=== PATIENT | male | born 2005 | race Caucasian/White ===

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

== ENCOUNTER 2023-04-09 11:47 | Emergency (ER) | payer MEDICAID ==
[~2023-04-09] VITALS: Ht 185.4 cm; Wt 68.1 kg
[~2023-04-09 11:47] MED LIST changes: +IBUP1TAB5 PO; -IBUP600T28 PO
[2023-04-09 12:23] LABS: Basophils # (auto) 0.1 10 ^3/uL (0-0.2); Basophils % (auto) 1.2 % (0.0-2.0); Eosinophils # (auto) 0.1 10 ^3/uL (0-0.8); Eosinophils % (auto) 2.1 % (0.0-7.0); Hematocrit 47.3 % (41.0-53.0); Hemoglobin 15.9 g/dL (13.5-17.5); Lymphocytes # (auto) 2.5 10 ^3/uL (0.4-5.4); Lymphocytes % (auto) 43.3 % (10.0-50.0); Mean Corpuscular Hgb Conc. 33.6 g/dL (32.0-36.0); Mean Corpuscular Volume 89.2 fL (80.0-100.0); Monocytes # (auto) 0.5 10 ^3/uL (0-1.3); Monocytes % (auto) 7.8 % (0.0-12.0); Neutrophils # (auto) 2.7 10 ^3/uL (1.6-8.6); Neutrophils % (auto) 45.6 % (37.0-80.0); Nucleated Red Blood Cells % 0.1 %; Red Cell Distribution Width 12.9 % (11.8-14.3); White Blood Cell 5.9 10^3/uL (4.4-10.8)
[2023-04-09 12:33] LABS: Urine Bacteria NONE SEEN /hpf (None Seen); Urine Blood Negative /uL (Negative); Urine Clarity Clear (Clear); Urine Color Colorless (Yellow); Urine Protein, UAD Negative (Negative); Urine Specific Gravity 1.014 (1.001-1.035); Urine Urobilinogen Normal (Negative); Urine WBC <1 /hpf (0 - 3)
[2023-04-09 12:39] LABS: Alanine Aminotransferase 29 U/L (7-40); Alkaline Phosphatase 88 U/L (46-116); Anion Gap 6 (5-15); Aspartate Aminotransferase 31 U/L (13-40); Blood Urea Nitrogen 15 mg/dL (9-23); Calcium 10.1 mg/dL (8.5-10.1); Carbon Dioxide 28 mmol/L (20-30); Chloride 107 mmol/L (98-107); Glucose 98 mg/dL (74-106); Potassium 4.4 mmol/L (3.5-5.1); Sodium 141 mmol/L (136-145); Total Protein 7.5 g/dL (5.7-8.2)
[2023-04-09 13:30] VITALS: BP 110/84; PULSE 74; RESP 16; TEMP 98; O2SAT 99
== END 2023-04-09 14:13 | disposition home or self-care (01) ==
LOC: ER 11:47
DX: R07.89 Other chest pain (principal); Z79.1 Long term (current) use of non-steroidal anti-inflammatories (NSAID); Z79.899 Other long term (current) drug therapy
CPT/HCPCS: 36415; 80053; 81001; 84484; 85025; 85379; 93005

== ENCOUNTER 2024-04-10 04:42 | Emergency (ER) | payer MEDICAID ==
[~2024-04-10] VITALS: Ht 185.4 cm; Wt 72.2 kg
--- NOTE | 2024-04-10 05:17 | ED.PDOC ---
History of Present Illness HPI Comments 18-year-old male came to ER due to anxiety. Patient denies any medical problems. States he was lying in bed, when he the substernal chest pains, described as aching, dull, tight, non radiating, associated with tingling of the lower extremities and mild shortness of breath. Patient states he felt very anxious and his symptoms worsened when his anxiety kicked in. He admits to have smoked marijuana earlier and drank alcohol also. He continues through for a dull left-sided chest pain. He denies any significant past medical history. Denies cocaine or methamphetamine use. No family history of cardiac disease. Chief Complaint: Anxiety Time Seen by MD: 05:13 Primary Care Provider: NONE Reviewed Notes: Nurses Notes Allergies: Coded Allergies: NO KNOWN ALLERGIES (Unverified , 06/09/22) Home Meds Active Scripts Lidocaine (LIDODERM 5% TOPICAL PATCH) 1 Patch Ph, 1 PATCH TOP DAILY PRN, #30 PATCH 0 Refills Prov:MARIYA [facility] 06/09/22 Cyclobenzaprine Hcl (Cyclobenzaprine Hcl) 10 Mg Tab, 10 MG PO TID, #12 TAB 0 Refills Prov:MARIYA [facility] 06/09/22 Ibuprofen Micronized (Ibuprofen) 600 Mg Tab, 600 MG PO Q8HPRN PRN, #30 TAB 0 Refills Prov:MARIYA [facility] 06/09/22 Information Source: Patient Mode of Arrival: EMS Severity: Moderate Timing: Minutes Review of Systems REVIEW OF SYSTEMS: No fever, no chills, or fatigue HEENT: No sore throat, no earache, no congestion, no neck pain. Cardiac: (+) chest pain. Positive palpitations. Lungs: No shortness of breath, no cough. GI: No nausea, no vomiting, no diarrhea, no constipation, no abdominal pain : No dysuria, frequency, or urgency. No hematuria. Musculoskeletal: No joint pain , no joint swelling, no extremity edema. Skin: No rash, no itching. Neuro: No headache, no dizziness, no weakness (+) tingling Vital Signs Vital Signs Date Time Temp Pulse Resp B/P (MAP) Pulse Ox O2 Delivery O2 Flow Rate FiO2 04/10/24 05:17 114 04/10/24 05:04 22 99 Room Air* 0 21 04/10/24 05:04 97.7 151/80 (103) Physical Exam General: Awake, alert and oriented. No acute distress. Skin: Skin in warm, dry and intact. Appropriate color for ethnicity. Nailbeds pink with no cyanosis. HEENT: The head is normocephalic and atraumatic. Conjunctivae are clear without exudates or hemorrhage. Sclera is non-icteric. EOM are intact. No signs of nystagmus. Eyelids are normal in appearance without swelling or lesions. Oral mucosa is pink and moist Neck: The neck is supple with normal range of motion. No JVD. Cardiac: Heart rate and rhythm are normal. No murmurs, gallops, or rubs are auscultated. Respiratory: No signs of respiratory distress. Lung sounds are clear in all lobes bilaterally without rales, ronchi, or wheezes. Abdominal: Abdomen is soft, non-tender without distention. Bowel sounds are present and normoactive in all four quadrants. Extremities: Upper and lower extremities are atraumatic in appearance without deformity or edema. Neurological: The patient is awake, alert and oriented to person, place, and time with normal speech. Speech is clear. There is no facial asymmetry. Psychiatric: Patient appears anxious Past Medical History PAST MEDICAL HISTORY: Anxiety Surgical History: Denies all surgeries Family History Family History: Unknown Social History Smoker: Non-Smoker, Other Alcohol: Occasionally Drugs: Marijuana Lives In: Home Was a procedure done? Was a procedure done?: No EKG EKG : Pulse Rate (adult): 114 Cardiac Rhythm: ST Hypertrophy: LAE Comments Right bundle-branch block. No STEMI. Differential Dx Considerations may include: Anemia, electrolyte imbalance, coronary artery disease, mi, anxiety X-Ray, Labs, Meds, VS Vital Signs Date Time Temp Pulse Resp B/P (MAP) Pulse Ox O2 Delivery O2 Flow Rate FiO2 04/10/24 05:17 114 04/10/24 05:04 22 99 Room Air* 0 21 04/10/24 05:04 97.7 108 22 151/80 (103) 99 04/10/24 04:59 114 Time of 1ST Reevaluation: 05:09 Reevaluation 1ST: Unchanged Patient Education/Counseling: Diagnosis, Treatment Family Education/Counseling: Diagnosis, Treatment Departure 1 Departure Time of Disposition: 05:46 Impression: Primary Impression: Chest pain Additional Impression: Palpitation Disposition: 30 STILL A PATIENT Condition: Stable Comments 18-year-old male who presents to the emergency department with chest pain and palpitations with onset just prior to arrival in the emergency department. His EKG shows sinus tachycardia with a right bundle-branch block. Labs, imaging, IV fluids and reassessment pending. Signed out to oncoming provider. Critical Care Note Critical Care Time?: No Stability Stability form required: No Heart Score Heart Score: Heart Score Response (Comments) Value History Slightly Suspicious 0 EKG Normal 0 Age <45 0 Risk Factors No known risk factors 0 Troponin Normal limit 0 Total 0 I personally scribed for RABIA DEL TORO MD ([email or web address]) on 04/10/24 at 05:17. Electronically submitted by Zaire Joseph ([facility]). RABIA DEL TORO MD Apr 10, 2024 05:17
--- NOTE | 2024-04-10 05:21 | DVH ---
CHEST RADIOGRAPH Indication: chest pain Technique: Single frontal view of the chest was obtained Comparison: None IMPRESSION: Heart is normal in size. Right lung appears clear. No sizable effusion or pneumothorax. Possible sub tle patchy left perihilar airspace opacity.
[2024-04-10] MEDS: ASPirin 81 mg TAB PO ONE (05:47)
[2024-04-10] MEDS: SODIUM CHLORIDE 0.9% 1,000 ML IV ONE (05:47)
[2024-04-10 05:55] VITALS: PULSE 89; RESP 18; O2SAT 100
[2024-04-10] MEDS: ONDANSETRON HCL 4 MG/2 ML VIAL IV ONE (05:59)
[2024-04-10 07:13] LABS: Basophils # (auto) 0 10 ^3/uL (0-0.2); Basophils % (auto) 0.4 % (0.0-2.0); Eosinophils # (auto) 0.1 10 ^3/uL (0-0.8); Eosinophils % (auto) 0.5 % (0.0-7.0); Hematocrit 44.6 % (41.0-53.0); Hemoglobin 15.1 g/dL (13.5-17.5); Mean Corpuscular Hemoglobin 30.4 pg (28.0-32.0); Mean Corpuscular Hgb Conc. 33.9 g/dL (32.0-36.0); Mean Corpuscular Volume 89.6 fL (80.0-100.0); Monocytes # (auto) 0.7 10 ^3/uL (0-1.3); Monocytes % (auto) 5.9 % (0.0-12.0); Neutrophils # (auto) 9.6 10 ^3/uL (1.6-8.6); Neutrophils % (auto) 77.2 % (37.0-80.0); Nucleated Red Blood Cells % 0.1 %; Platelet Count (auto) 267 10^3/uL (140-450); Red Blood Cells 4.97 10^6/uL (4.5-5.90); Red Cell Distribution Width 13.4 % (11.8-14.3); White Blood Cell 12.4 10^3/uL (4.4-10.8)
--- NOTE | 2024-04-10 07:23 | ECG ---
[facility] Test Date: 2024-04-10 Test Time: 04:49:03 Pat Name: GAURANG SLOAN Department: ER Room: Gender: M [employer]: : 2005 Requested By: RABIA DEL TORO Order Number: [id number] Reading MD: Derek Torres Measurements Intervals Valentine Rate: 114 P: 74 MI: 154 QRS: 83 QRSD: 123 T: 52 QT: 345 QTc: 476 Interpretive Statements Sinus tachycardia Probable left atrial enlargement Right bundle branch block Electronically Signed On 04-10-2024 14:46:52 PST by Derek Torres Please click the below link to view image of tracing.
[2024-04-10 07:32] LABS: Alkaline Phosphatase 63 U/L (46-116); Anion Gap 8 (5-15); Aspartate Aminotransferase 34 U/L (13-40); BUN/Creatinine Ratio 9.6 (10.0-20.0); Blood Urea Nitrogen 10 mg/dL (9-23); Calcium 9.6 mg/dL (8.7-10.4); Carbon Dioxide 24 mmol/L (20-31); Glucose 104 mg/dL (74-106); Potassium 3.7 mmol/L (3.5-5.1); Sodium 141 mmol/L (136-145)
[2024-04-10 07:33] LABS: Bilirubin, Total 0.5 mg/dL (0.2-1.0); Total Protein 7.1 g/dL (5.7-8.2)
[2024-04-10 07:38] LABS: Alanine Aminotransferase 57 U/L (7-40); Albumin 4.8 g/dL (3.2-4.8); Chloride 109 mmol/L (98-107)
--- NOTE | 2024-04-10 08:55 | ED.PDOC ---
Departure 1 Departure Time of Disposition: 08:54 (Patient presented with chest pain that was concerning for possible STEMI, ACS, PE, Pneumonia, Muscle Strain, COPD, Dissection. Data: 1. I ordered and reviewed the result of at least 3 labs including a CBC, BMP, and Troponin. 2. I independently interpreted the following tests: EKG which shows normal sinus rhythm with a right bundle branch block and Chest X-ray which shows a benign chest.Risk:This patient presented with a high risk of morbidity due to further diagnostic testing or treatment and may suffer from an acute cardiac or respiratory disorder. After review of all the data patient is unlikely to have a pe , dissection, and is low risk for acs. Patient is stable at this time.Workup so far is benign and patient will be discharged with outpatient followup. ) Impression: Primary Impression: Chest pain Qualified Codes: R07.9 - Chest pain, unspecified Additional Impressions: Palpitation Right bundle branch block Disposition: 01 HOME / SELF CARE / HOMELESS Condition: Stable Additional Instructions: You presented today with chest pain. Your workup today was benign including labs, troponin, EKG, chest x-ray. Your pain may be from musculoskeletal strain, acid reflux, anxiety, or many other factors. It is important to follow up with your regular doctor within 1 week. If your symptoms worsen or you have any other concerns please return to the emergency room. Discharged With: KENDELL Calhoun MD Apr 10, 2024 08:55
[2024-04-10 09:10] VITALS: BP 122/66; PULSE 80; RESP 16; TEMP 98.6; O2SAT 100
== END 2024-04-10 09:19 | disposition home or self-care (01) ==
LOC: ER 04:42
DX: R07.89 Other chest pain (principal); R00.2 Palpitations; I45.10 Unspecified right bundle-branch block; F41.9 Anxiety disorder, unspecified; Z79.899 Other long term (current) drug therapy
CPT/HCPCS: 36415; 71045; 80053; 84484; 85025; 93005; 96361; 96374; 99285; J2405; J7030